=== PATIENT | female | born 1995 | race Caucasian/White ===

== ENCOUNTER 2021-01-06 05:39 | Emergency (ER) | payer BC ==
[2021-01-06 07:51] LABS: BLOOD UREA NITROGEN,BUN 15 mg/dL (7.0-18.0); CARBON DIOXIDE,CO2 25.4 mmol/L (21.0-32.0); CHLORIDE,CL 106 mmol/L (98-107); GLUCOSE RANDOM 112 mg/dL (74-106); POTASSIUM,K 3.8 mmol/L (3.5-5.1); SODIUM,NA 142 mmol/L (136-145)
--- NOTE | 2021-01-06 08:09 | PCM.SN.2 ---
- Free Text/Narrative Note: Patient was signed out to me by Dr. Garcia at 7 AM. I promptly performed a detailed physical examination and my examination was done after ED treatments were initiated by the signout provider. Patient has been under the care of previous provider up until this point. On evaluation the patient the patient presented to the emergency department with acute onset pelvic pain located on the left side with radiation to back. She states that since October 24, 2020 she has been having vaginal bleeding. She states that she had an ultrasound completed and followed up with gynecology and they told her she had a polyp which needs to be removed. She states that the bleeding has been continuous however it is more like passing clots. She states his pain initially was 8 out of 10 and sharp and constant and now it is 5 out of 10. She states that it is improved. She states that there was a delay in removing the polyp because she was diagnosed with PID and has gone through 2 tablets of azithromycin since then. She states that she has never had pain like this before. She denies any personal history of endometriosis, ovarian torsion, ectopic . She she states her aunt does have endometriosis but her mother and grandmother do not. General: Well-appearing woman who is in no acute distress Psychiatric: Appropriate mood and affect. Eyes: No scleral icterus or conjunctival erythema ENMT: Moist mucous membranes. No pharyngeal erythema Cardiovascular: Regular, rate, and rhythm. No gallops, murmurs, or rubs. Bilateral upper extremity pulses symmetric and intact. No peripheral edema. No JVD. Respiratory: Lungs clear to auscultation bilaterally. No wheezes, rales, or rhonchi. Gastrointestinal: Soft, non-tender, non-distended. Normoactive bowel sounds Genitourinary: No suprapubic tenderness Musculoskeletal: Normal range of motion. Skin: No lesions or abrasions. Neurological: Alert, GCS 15 Patient has not yet received a pelvic examination in order to further identify if there is any cervical motion tenderness or Tenderness we will perform an examination. This was discussed with the patient and she was amenable to this plan. Bedside pelvic examination was performed with ROMERO Anthony in presence. Patient has normal female external genitalia. On speculum examination there was some clots in the posterior vaginal vault. Cervix was not erythematous. No purulent drainage noted. There was no adnexal tenderness or cervical motion tenderness there was a discomfort and no chandelier sign. At this time given that the patient has been treated for STDs multiple times I do not believe retreatment is indicated that she is not been having unprotected sex. We will send gonorrhea, chlamydia urine and obtain a trichomonas and bacterial vaginosis swab. The patient was amenable to this plan. Laboratory: CBC reveals a microcytic anemia with a hemoglobin of 10.7 and hematocrit of 34.3. CMP reveals hyperglycemia at 112 otherwise unremarkable. Urine hCG is negative. Urinalysis reveals hematuria likely secondary to vaginal bleeding otherwise unremarkable. BV is positive. The radiological images were viewed by myself along with reading the report from the radiologist. Transvaginal ultrasound does not reveal any acute process. There is no abnormality with a pelvic ultrasound. Since BV is positive I did provide the patient with Flagyl by mouth. I did prescribe the patient Flagyl. Given the degree of her vaginal bleeding I did discuss with her that she needed to follow-up with gynecology to discuss dysfunctional uterine bleeding. She was amenable to this plan and had no further questions. CONDITION: fair PROCEDURES: None FINAL IMPRESSION(S)/DIAGNOSES: 1. Acute bacterial vaginosis 2. Acute on chronic anemia secondary to dysfunctional uterine bleeding Toni Drummond M.D. Time Documentation
[2021-01-06] MEDS ORDERED: Ibuprofen 600 MG Tab PO ONE (09:42)
[2021-01-06] MEDS ORDERED: metroNIDAZOLE 250 MG Tab PO STA (10:10)
--- NOTE | 2021-01-06 10:40 | US ---
INDICATION: Pelvic pain. Long-term bleeding. TECHNIQUE: Transvaginal scanning was performed to optimally evaluate the endometrium and adnexa. Ovarian blood flow was evaluated with color-flow and pulsed Doppler. COMPARISON: None. FINDINGS: The uterus is normal in size and shape. The uterus measures 8.2 x 3.8 x 3.8 cm. No uterine mass is evident. The endometrial stripe is normal in thickness at 7 mm. The ovaries are normal in size and contain a number of follicles. The right ovary measures 2.9 x 2.7 x 2.5 cm and left 3.1 x 2.3 x 1.9 cm. Ovarian blood flow is demonstrated with color-flow and pulsed Doppler. No adnexal mass is evident. No free fluid is demonstrated. IMPRESSION: Negative pelvic ultrasound. Dictated by Michael Palumbo MD @ 01/06/2021 10:38:29 AM (Electronically Signed)
[2021-01-07 13:07] LABS: C.TRACHOMATIS BY TMA Negative (Negative); N.GONORRHOEAE BY TMA Negative (Negative)
== END 2021-01-06 11:12 | disposition home or self-care (01) ==
LOC: MW.ED 05:39
DX: N76.0 Acute vaginitis (principal); B96.89 Other specified bacterial agents as the cause of diseases classified elsewhere; D64.9 Anemia, unspecified; N93.8 Other specified abnormal uterine and vaginal bleeding
CPT/HCPCS: 36415; 76830; 80053; 81001; 81025; 85025; 87480; 87491; 87510; 87591; 87660; 99284; A9270

== ENCOUNTER 2021-02-11 06:46 | Day surgery (SDC) | payer BC ==
[2021-02-11] MEDS ORDERED: Scopolamine 1.5 MG Transdermal Patch ONE (07:11)
[2021-02-11] MEDS ORDERED: Propofol 200 MG/20 ML SDV ONE ×4 (07:13→08:58)
[2021-02-11] MEDS ORDERED: fentaNYL 250 MCG/5 ML SDV ONE (07:14)
[2021-02-11] MEDS ORDERED: ePHEDrine 50 MG/ML SDV ONE (07:14)
[2021-02-11] MEDS ORDERED: Glycopyrrolate 0.2 MG/ML SDV ONE (07:14)
[2021-02-11] MEDS ORDERED: Lactated Ringers 1,000 ML IV SCH (07:30)
[2021-02-11] MEDS ORDERED: Metoclopramide 10 MG/2 ML SDV IVPUSH PRN (07:33)
[2021-02-11] MEDS ORDERED: fentaNYL 100 MCG/2 ML SDV IVPUSH PRN (07:33)
[2021-02-11] MEDS ORDERED: Naloxone 0.4 MG/ML SDV IVPUSH PRN (07:33)
[2021-02-11] MEDS ORDERED: Morphine 2 MG/ML SYRINGE IVPUSH PRN (07:33)
[2021-02-11] MEDS ORDERED: HYDROmorphone 1 MG/ML Syringe IVPUSH PRN (07:33)
[2021-02-11] MEDS ORDERED: Albuterol 0.083% 2.5 MG/3 ML Neb Soln NEB PRN (07:33)
[2021-02-11] MEDS ORDERED: Ondansetron 4 MG/2 ML SDV IVPUSH PRN (07:33)
--- NOTE | 2021-02-11 07:36 | PCM.PREANE ---
Preanesthetic Assessment - Anesthesia/Transfusion/Family Hx Anesthesia History: Prior Anesthesia Without Reaction Family History of Anesthesia Reaction: No Transfusion History: No Prior Transfusion(s) - Review of Systems General: No Symptoms Pulmonary: No Symptoms Cardiovascular: No Symptoms Gastrointestinal: No Symptoms Neurological: No Symptoms Other: Reports: Depression, Anxiety - Physical Assessment NPO Status Date: 02/11/21 NPO Status Time: 00:00 Vital Signs: Last Vital Signs Temp 98.4 F 02/11/21 07:01 Pulse 77 02/11/21 07:01 Resp 14 02/11/21 07:01 BP 140/69 02/11/21 07:01 Pulse Ox 97 02/11/21 07:01 Height: 5 ft 4.5 in Weight: 244 lb ASA Class: 2 Mental Status: Alert & Oriented x3 Airway Class: Mallampati = 2 Dentition: Reports: Normal Dentition Thyro-Mental Finger Breadths: 3 Mouth Opening Finger Breadths: 3 ROM/Head Extension: Full Lungs: Clear to Auscultation, Normal Respiratory Effort Cardiovascular: Regular Rate, Regular Rhythm - Lab Values: Laboratory Last Values WBC 10.51 K/uL (4.0-11.0) 02/11/21 07:12 RBC 4.52 M/uL (4.30-5.90) 02/11/21 07:12 Hgb 10.2 g/dL (12.0-16.0) L 02/11/21 07:12 Hct 33.3 % (36.0-46.0) L 02/11/21 07:12 MCV 73.7 fL (80.0-98.0) L 02/11/21 07:12 MCH 22.6 pg (27.0-32.0) L 02/11/21 07:12 MCHC 30.6 g/dL (31.0-37.0) L 02/11/21 07:12 RDW Std Deviation 46.7 fl (28.0-62.0) 02/11/21 07:12 RDW Coeff of Deangelo 17 % (11.0-15.0) H 02/11/21 07:12 Plt Count 402 K/uL (150-400) H 02/11/21 07:12 MPV 10.30 fL (7.40-12.00) 02/11/21 07:12 Neut % (Auto) 61.6 % (48.0-80.0) 02/11/21 07:12 Lymph % (Auto) 28.0 % (16.0-40.0) 02/11/21 07:12 Mckean % (Auto) 8.2 % (0.0-15.0) 02/11/21 07:12 Eos % (Auto) 1.9 % (0.0-7.0) 02/11/21 07:12 Baso % (Auto) 0.3 % (0.0-1.5) 02/11/21 07:12 Neut # (Auto) 6.5 K/uL (1.4-5.7) H 02/11/21 07:12 Lymph # (Auto) 2.9 K/uL (0.6-2.4) H 02/11/21 07:12 Mckean # (Auto) 0.9 K/uL (0.0-0.8) H 02/11/21 07:12 Eos # (Auto) 0.2 K/uL (0.0-0.7) 02/11/21 07:12 Baso # (Auto) 0.0 K/uL (0.0-0.1) 02/11/21 07:12 Nucleated RBC % 0.0 /100WBC 02/11/21 07:12 Nucleated RBCs # 0 K/uL 02/11/21 07:12 Urine HCG, Qual NEGATIVE (NEGATIVE) 02/11/21 06:55 - Allergies Allergies/Adverse Reactions: Allergies Allergy/AdvReac Type Severity Reaction Status Date / Time No Known Allergies Allergy Verified 02/11/21 07:05 - Acknowledgements Anesthesia Type Planned: General Anesthesia Pt an Appropriate Candidate for the Planned Anesthesia: Yes Alternatives and Risks of Anesthesia Discussed w Pt/Guardian: Yes Pt/Guardian Understands and Agrees with Anesthesia Plan: Yes PreAnesthesia Questionnaire - Past Health History Medical/Surgical History: Denies Medical/Surgical History HEENT History: Reports: None Cardiovascular History: Reports: None Respiratory History: Reports: None Gastrointestinal History: Reports: None Genitourinary History: Reports: None 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: Dysfunctional Uterine Bleeding, Spontaneous Other OB/BYN History: polyp on ovary, chlamydia Musculoskeletal History: Reports: None Neurological History: Reports: None Psychiatric History: Reports: Anxiety, Bipolar, OCD Other Psychiatric History: no longer on medications for this Endocrine/Metabolic History: Reports: Obesity/BMI 30+ Hematologic History: Reports: None Immunologic History: Reports: None Oncologic (Cancer) History: Reports: None Dermatologic History: Reports: None - Past Surgical History Head Surgeries/Procedures: Reports: None HEENT Surgical History: Reports: Oral Surgery Other HEENT Surgeries/Procedures: wisdom teeth extraction Cardiovascular Surgical History: Reports: None Respiratory Surgical History: Reports: None GI Surgical History: Reports: None Female Surgical History: Reports: None Endocrine Surgical History: Reports: None Neurological Surgical History: Reports: None Musculoskeletal Surgical History: Reports: None Oncologic Surgical History: Reports: None Dermatological Surgical History: Reports: None - SUBSTANCE USE Tobacco Use Status *Q: Current Every Day Tobacco User Tobacco Use Within Last Twelve Months: Cigarettes - HOME MEDS Home Medications: Home Meds Doxycycline [Vibramycin] 1 tab PO BID 02/11/21 [History] Vandazole Vaginal Cream 1 applic VAG ASDIRECTED 02/11/21 [History] norgestimate-ethinyl estradioL [Sprintec 28 Day Tablet] 1 tab PO ASDIRECTED 02/11/21 [History] - CURRENT (IN HOUSE) MEDS Current Meds: Current Medications Lactated Ringer's (Ringers, Lactated) 1,000 mls @ 125 mls/hr IV ASDIRECTED COUNTS INCLUDE 234 BEDS AT THE [facility] Last Admin: 02/11/21 07:25 Dose: 125 mls/hr Documented by: Discontinued Medications Ephedrine Sulfate (Ephedrine 50 Mg/Ml Sdv) Confirm Administered Dose 50 mg .ROUTE .STK-MED ONE Stop: 02/11/21 07:15 Fentanyl (Fentanyl 250 Mcg/5 Ml Sdv) Confirm Administered Dose 250 mcg .ROUTE .STK-MED ONE Stop: 02/11/21 07:15 Glycopyrrolate (Glycopyrrolate 0.2 Mg/Ml Sdv) Confirm Administered Dose 0.4 mg .ROUTE .STK-MED ONE Stop: 02/11/21 07:15 Propofol (Propofol 200 Mg/20 Ml Sdv) Confirm Administered Dose 200 mg .ROUTE .STK-MED ONE Stop: 02/11/21 07:14 Scopolamine (Scopolamine 1.5 Mg Transdermal Patch) Confirm Administered Dose 1.5 mg .ROUTE .STK-MED ONE Stop: 02/11/21 07:12
[2021-02-11] MEDS ORDERED: Sodium Chloride 0.9% 10 ML Syringe FLUSH PRN (08:01)
[2021-02-11] MEDS ORDERED: Sodium Chloride 0.9% 10 ML SDV IV PRN (08:01)
[2021-02-11] MEDS ORDERED: Sodium Chloride 0.9% 2.5 ML Syringe FLUSH PRN (08:01)
[2021-02-11] MEDS ORDERED: fentaNYL 100 MCG/2 ML SDV ONE ×2 (08:13→08:43)
[2021-02-11] MEDS ORDERED: Dexamethasone 4 MG/ML 5 ML MDV ONE (08:31)
[2021-02-11] MEDS ORDERED: Ondansetron 4 MG/2 ML SDV ONE (08:31)
[2021-02-11] MEDS ORDERED: Ketorolac 30 MG/ML SDV ONE (09:14)
[2021-02-11] MEDS ORDERED: Acetaminophen/HYDROcodone 325-5 MG Tab PO PRN (09:39)
[2021-02-11] MEDS ORDERED: Ketorolac 30 MG/ML SDV IM ONE (09:39)
--- NOTE | 2021-02-11 09:43 | PCM.OPNOTE ---
- General Post-Op/Procedure Note Date of Surgery/Procedure: 02/11/21 Operative Procedure(s): Operative hysteroscopy with removal of endometrial polyp Findings: Normal sized anteverted uterus Hysteroscopy showed normal tubal ostia 2 Endometrial polyp noted Fluid deficit 500 of LR Pre Op Diagnosis: Abnormal uterine bleeding secondary to endometrial polyp Post-Op Diagnosis: same Anesthesia Technique: General Mask Primary Surgeon: Michelle García Anesthesia Provider: Renny Burkett Pathology: Endometrial currettings Fluid Replacement, Intraop: 1,500 EBL in mLs: 10 Complications: None Condition: Good Free Text/Narrative:: Intake & Output 02/10/21 02/11/21 02/11/21 22:59 06:59 14:59 Output Total 30 Balance -30
--- NOTE | 2021-02-11 09:44 | PCM.POSTAN ---
POST ANESTHESIA ASSESSMENT - MENTAL STATUS Mental Status: Alert, Oriented Free Text/Narrative:: sleeping yet arouses easily to voice - VITAL SIGNS Vital Signs: Last Vital Signs Temp 36.9 C 02/11/21 09:31 Pulse 81 02/11/21 09:37 Resp 21 H 02/11/21 09:37 BP 128/66 02/11/21 09:37 Pulse Ox 99 02/11/21 09:37 - RESPIRATORY Respiratory Status: Respiratory Rate WNL, Airway Patent, O2 Saturation Stable - CARDIOVASCULAR CV Status: Pulse Rate WNL, Blood Pressure Stable - GASTROINTESTINAL GI Status: No Symptoms - PAIN Pain Score: 0 - POST OP HYDRATION Hydration Status: Adequate & Stable
--- NOTE | 2021-02-11 10:20 | PCM48HPAN ---
Post Anesthesia Note - EVALUATION WITHIN 48HRS OF ANESTHETIC Vital Signs in Normal Range: Yes Patient Participated in Evaluation: Yes Respiratory Function Stable: Yes Airway Patent: Yes Cardiovascular Function Stable: Yes Hydration Status Stable: Yes Pain Control Satisfactory: Yes Nausea and Vomiting Control Satisfactory: Yes Mental Status Recovered: Yes Vital Signs: Last Vital Signs Temp 36.3 C 02/11/21 10:10 Pulse 75 02/11/21 10:10 Resp 14 02/11/21 10:10 BP 119/68 02/11/21 10:10 Pulse Ox 97 02/11/21 10:10 - COMMENTS/OBSERVATIONS Free Text/Narrative:: pt denies pain or nausea
--- NOTE | 2021-02-12 12:44 | OR ---
SURGEON: AMOS MICHAEL DATE OF PROCEDURE: 02/11/2021 PREOPERATIVE DIAGNOSIS: A 25-year-old para 0 with abnormal uterine bleeding with suspected endometrial polyp. POSTOPERATIVE DIAGNOSIS: A 25-year-old para 0 with abnormal uterine bleeding with suspected endometrial polyp. PROCEDURE: Operative hysteroscopy with removal of endometrial lesion. ESTIMATED BLOOD LOSS: 10 mL. IV FLUID: 1500. ANESTHESIA: General COMPLICATIONS: None. PATHOLOGY: Endometrial lesion and endometrial curetting. NOTES AND FINDING: Examination under anesthesia revealed a normal-sized anteverted uterus. Normal cervix was noted. Then hysteroscopy showed 2 endometrial polyps, one in the lower segment and one in the higher segment. Two bilateral ostia noted. BRIEF HISTORY ABOUT THE PATIENT: The patient is a 25-year-old, P0, who was complaining of abnormal uterine bleeding. She was having prolonged periods and continuous periods. She had a workup that showed a thickened endometrium with areas of increased flow. At that point, she was chlamydia positive and she was treated and test of cure was done, and it was negative. Because of the ultrasound, the patient was counseled for hysteroscopy, which she agreed to. DESCRIPTION OF PROCEDURE: The patient was taken to the operating room, where general anesthesia was performed without difficulty. She was prepped and draped in the dorsal lithotomy position with Lucas stirrups. . The bladder was emptied with a straight catheter. A bivalved speculum was placed to expose the cervix. The cervix was grasped at the anterior lip. The cervix was dilated to accommodate the MyoSure hysteroscope. The MyoSure hysteroscope revealed the polyp as stated above. With the MyoSure, the lesions were removed without any difficulty and sent for pathology. After removal of the lesions with the MyoSure, then endometrial curetting was done. Fluid deficit was noted to be 500. The Allis was removed. The speculum was removed. All instrument and pad counts were correct x2. The patient was sent home with Motrin and Tylenol for pain. LAURYN SABILLON /[id number] MTDD
== END 2021-02-11 11:05 | disposition home or self-care (01) ==
LOC: MW.SDS 06:46
PROVIDERS: ATTEND Obstetrics & Gynecology
DX: N84.0 Polyp of corpus uteri (principal); N85.01 Benign endometrial hyperplasia; E66.9 Obesity, unspecified; F17.210 Nicotine dependence, cigarettes, uncomplicated; Z98.890 Other specified postprocedural states; Z79.899 Other long term (current) drug therapy
CPT/HCPCS: 36415; 58558; 81025; 85025; 88305; J0131; J1100; J2405; J2704; J3010; J3490; J7120; 00952; J1885